=== PATIENT | male | born 1945 | race Caucasian/White ===

== ENCOUNTER 2016-11-06 18:04 | Inpatient (IN) ==
[2016-11-06] MEDS ORDERED: ASPIRIN PO STA (18:17)
--- NOTE | 2016-11-06 18:20 | EKG Report ---
Test Performed on : 11/06/2016 6:13:13 PM Test Reason : CHEST PAIN Blood Pressure : / mmHG Vent. Rate : 094 BPM Atrial Rate : 094 BPM P-R Int : 152 ms QRS Dur : 086 ms QT Int : 340 ms P-R-T Axes : 063 -10 076 degrees QTc Int : 425 ms Normal sinus rhythm. Cannot rule out Inferior infarct , age undetermined Abnormal ECG No previous ECGs available Unconfirmed Result
[2016-11-06 18:41] LABS: MANUAL DIFF NEEDED? NO
[2016-11-06 18:55] LABS: BASO% 0.3 % (0.0-0.8); EOS# 0.09 X1000 (0.0-0.7); EOS% 2.5 % (0.0-10.0); HEMATOCRIT 53.4 % (42.0-52.0); HEMOGLOBIN 17.3 g/dL (14.0-18.0); IMM GRAN# 0.01 X1000 (0.0-0.04); IMM GRAN% 0.3 % (0.0-0.5); LYMPH# 1.56 X1000 (1.2-3.4); LYMPH% 43.1 % (20.5-51.1); MCH 28.6 PG (27-31); MCHC 32.4 g/dL (33-37); MCV 88.3 FL (81-99); MONO# 0.55 X1000 (0.11-0.59); MONO% 15.2 % (1.7-9.3); MPV 9.5 FL (7.4-10.4); NEUT% 38.6 % (42.2-75.2); PLT 167 X1000 (130-400); RBC 6.05 XMIL (4.7-6.1)
[2016-11-06 19:02] LABS: INR 0.97 (0.86-1.15); PROTIME 13.2 Seconds (12.1-15.5)
[2016-11-06 19:03] LABS: PTT PL 30.6 Seconds (22.6-43.9)
[2016-11-06 19:07] LABS: ALBUMIN 4.1 g/dL (3.5-5.0); CALCIUM 9.6 mg/dL (8.8-10.2); MAGNESIUM 2.4 mg/dL (1.5-2.7); POTASSIUM 3.8 mmol/L (3.5-5.1); TOTAL BILIRUBIN 0.3 mg/dL (0.20-1.00); TOTAL PROTEIN 6.4 g/dL (6.3-8.3)
[2016-11-06 20:58] LABS: AMYLASE 58 U/L (20-200); LIPASE 21 U/L (13-60)
[2016-11-06] MEDS ORDERED: NS 1,000 ML IV ONE (21:24)
[2016-11-06] MEDS ORDERED: ZOFRAN IV PRN (21:24)
[2016-11-06] MEDS: MORPHINE IV PRN (23:49)
--- NOTE | 2016-11-07 07:32 | Diag Imaging Result Document ---
PROCEDURE NAME: CHEST-2 VIEWS - 11/06/2016 FRONTAL AND LATERAL CHEST, TWO VIEWS: COMPARISON: Compared to 08/07/2015. FINDINGS: The lungs are hyperexpanded. There is increased AP diameter to the chest. The pulmonary vessels are small. The heart is not enlarged. Density in the upper right lung has an appearance similar to that of the prior exam. No pleural effusions. IMPRESSION: 1. Emphysema. 2. Fairly stable appearing mass or scarring in the right upper lobe.
--- NOTE | 2016-11-07 07:40 | Diag Imaging Result Document ---
PROCEDURE NAME: HEAD W/O CONTRAST - 11/06/2016 CT BRAIN WITHOUT CONTRAST: COMPARISON: Compared to 03/11/2016. FINDINGS: No parenchymal hemorrhage. No epidural or subdural hematoma. No subarachnoid hemorrhage. There is atrophy with chronic microvascular ischemic changes. No sinus opacification. No air fluid levels. IMPRESSION: 1. No hemorrhage. 2. Mild atrophy with mild chronic microvascular ischemic changes. A preliminary report was given at 8:21 p.m.
[2016-11-07] MEDS ORDERED: FLOMAX PO PRN (08:23)
[2016-11-07] MEDS ORDERED: LOVENOX SUBQ SCH (08:30)
--- NOTE | 2016-11-07 09:27 | HISTORY AND PHYSICAL ---
CHIEF COMPLAINT: Syncope after mowing his yard yesterday. HISTORY OF PRESENTING ILLNESS: This is a 71-year-old male, who presented to the emergency room after he states that he was outside mowing his yard. Had some trouble with his tax record clerk, tried to fix it and he passed out. He also states that he has had been having some abdominal pain with nausea, vomiting. Workup in the ER showed a D-dimer of 1.24 and a creatinine of 1.5. His head CT showed no hemorrhage. Chest x-ray showed a fairly stable-appearing mass or scarring in the right upper lobe. A CT of the abdomen, pelvis and pulmonary arteries per ER documentation showed a right upper lobe mass 3.7 cm concerning for lung CA, severe COPD. It appears the abdomen was within normal limits. I am waiting on radiology read at this time and he was admitted for further evaluation and treatment. PAST MEDICAL HISTORY: 1. COPD. 2. BPH. 3. Hypertension. 4. Chronic pain. 5. GERD. PAST SURGICAL HISTORY: Appendectomy and a hernia repair. FAMILY HISTORY: Noncontributory. SOCIAL HISTORY: She currently lives with family. Is a half a pack a day smoker. Denies any alcohol use and uses marijuana occasionally. ALLERGIES: 1. Bacitracin. 2. Buspirone. HOME MEDICATIONS: Tamsulosin 0.4 mg p.o. p.r.n. for urinary retention. LABORATORY DATA: Showed a white blood cell count of 3.62, hemoglobin of 17.3, hematocrit 53.4, platelets 167,000. PT and INR of 13.2 and 0.97, with a D-dimer of 1.24. Sodium of 135, potassium 3.8, chloride 100, CO2 21, BUN of 19 with a creatinine of 1.5. Glucose 209. Magnesium 2.4. Creatine kinase was 62 with a troponin less than 0.010. ProBNP 35. Amylase of 58, lipase 21. CT of the head showed no hemorrhage. Mild atrophy with mild chronic microvascular ischemic changes. Chest x-ray showed emphysema and a fairly stable appearing mass or scarring in the right upper lobe. EKG shows normal sinus rhythm at [address] of the abdomen, pelvis and pulmonary arteries were ER documented. I do not have the radiology read at this time that showed a right upper mass 3.7 cm concerning for lung cancer, severe COPD and abdomen and pelvis normal. I do not have documentation at this time on whether there was no pulmonary emboli so I will look for the radiology-read report and followup. REVIEW OF SYSTEMS: He denied any fever, chills, blurred vision. He was positive for some dizziness. Denied any chest pain, coughing, shortness of breath. He is positive for some abdominal pain with nausea and vomiting that is intermittent. He denied any burning or hurting with urination. PHYSICAL EXAMINATION: On arrival, he had a temperature of 98.7 degrees, pulse 108, respirations 24, blood pressure 137/75 saturating 97% on room air. GENERAL: This is a 71-year-old male who is lying in the bed, and answers questions appropriately. HEENT: Normocephalic and atraumatic. Pupils are equal, round, reactive to light. Extraocular movements are intact. The oropharynx and nares are clear. NECK: Supple. LUNGS: Clear to auscultation bilaterally with equal lung expansion and chest wall movement. HEART: With regular rate and rhythm. No murmurs, rubs, or gallops. ABDOMEN: Soft, nontender, nondistended. Bowel sounds are present x4 quadrants. EXTREMITIES: No clubbing, cyanosis, or edema. NEUROLOGICAL: Cranial nerves 2-12 are grossly intact. ASSESSMENT: 1. Syncope. 2. Acute kidney injury. 3. Right upper lobe lung mass. 4. Hypertension. PLAN: He was admitted to the medical unit at [facility]. Placed on telemetry. Neuro checks q.4 hours for 24 hours. Placed on a regular diet. We will check an echocardiogram, a carotid ultrasound, and a bilateral lower extremity venous Doppler, do serial troponins. He is on normal saline at 80 mL an hour. Will place him on Lovenox 40 mg subcutaneous q.24 h for DVT prophylaxis until we can rule out this PE. He has morphine 2 mg IV q.2 hours p.r.n., and we will recheck a CBC and a BMP in the a.m. Patient states that he has quit smoking approximately 2 weeks ago and we will have him follow up with his primary care physician for the right upper lobe mass as an outpatient. Dictated by REECE Owens for Carl Blevins MD cc: REECE Owens, MD
[2016-11-07] MEDS: MORPHINE IV PRN ×2 (09:45→21:46)
--- NOTE | 2016-11-07 10:01 | Diag Imaging Result Document ---
PROCEDURE NAME: ABD/PELVIS/PULM ARTERIES - 11/06/2016 CT ANGIOGRAM PULMONARY ARTERIES WITH CONTRAST: Exam performed with intravenous contrast. A dose- reduction protocol was used. Axial and reformatted coronal images are obtained. COMPARISON: Images are compared with the without contrast CT thorax of 09/13/2013. FINDINGS: There are artifacts from motion which limit detail, primarily at the lower lobe pulmonary artery branches. There are no discrete pulmonary artery filling defects identified. There is severe COPD/emphysematous changes. The previously identified large right upper lobe mass has decreased a bit in size compared to previous exam. The largest single slice lobulation of the mass measures 3.6 x 2.4 cm, compared with 4.3 x 2.9 cm on the previous exam. There is scattered subcentimeter nodular densities which appear either stable or slightly decreased compared to the previous exam. There is mild right hilar and mediastinal adenopathy which appears grossly stable. IMPRESSION: 1. No evidence of pulmonary embolism. 2. Severe COPD/emphysematous changes. 3. No evidence of pneumonia. 4. Right upper lobe mass which has decreased a bit in size compared to 09/13/2013. Grossly stable mild right hilar and mediastinal adenopathy. Stable scattered subcentimeter pulmonary nodules. CT OF THE ABDOMEN AND PELVIS WITH CONTRAST: Exam performed with intravenous contrast only per request of the referring provider. A dose-reduction protocol was used. COMPARISON: Compared to 10/15/2015. FINDINGS: There is a calcification in the dome of the liver, which is stable. There are no acute abnormalities of the liver, spleen, adrenal glands, or pancreas identified. There are no calcified gallstones seen. The bilateral kidneys enhance homogeneously. There is no hydronephrosis. There are no substantially enlarged lymph nodes identified. There are atherosclerotic calcifications noted. There are a couple of small fat-containing anterior abdominal wall hernias at the upper abdomen, which are stable. There is no bowel-containing hernia seen. There is no evidence of bowel obstruction. The appendix by history is surgically absent. There is uncomplicated colonic diverticulosis. There is no free air, substantial free fluid, or abscess identified. There is prostatic enlargement similar to the previous exam IMPRESSION: 1. No bowel obstruction. Uncomplicated colonic diverticulosis. 2. Prostatic enlargement similar to prior. 3. No visible acute process. There are atherosclerotic calcifications noted. The on-call radiologist provided preliminary results at 9:02 p.m. on 11/06/2016.
[2016-11-07] MEDS: DUONEB (A & A) INH SCH ×3 (15:52→22:44)
--- NOTE | 2016-11-07 16:03 | Extremity Venous Study ---
PROCEDURE NAME: Carotid Ultrasound - 11/07/2016 CAROTID FLOW STUDY: FINDINGS: There is atherosclerotic plaquing in the right carotid bulb/proximal internal carotid artery. Maximum systolic velocity in the right internal carotid artery is 271 cm/sec and maximum diastolic velocity is 68 cm/sec, both of which are located in the proximal right internal carotid artery. The right internal to common carotid artery systolic velocity ratio of 3.54. The flow velocities and ratios suggest 80-99% stenosis in the right internal carotid artery. There is substantial soft atherosclerotic plaquing in the left common carotid artery and in the proximal left internal carotid artery. Maximum systolic velocity in the left internal carotid artery is 57 cm/sec, maximum diastolic velocity is 19 cm/sec. The left internal to common carotid systolic velocity ratio 0.54. The flow velocities and ratios suggest less than 40% stenosis in the left internal carotid artery. The bilateral vertebral arteries demonstrate antegrade flow. IMPRESSION: 1. Flow velocities and ratio which suggest 80%-99% stenosis (critical stenosis) at the proximal right internal carotid artery. 2. Substantial soft atherosclerotic plaquing in the left common carotid artery and proximal left internal carotid artery. However, the flow velocities and ratios suggest less than 40% stenosis in the left internal carotid artery. [facility]
--- NOTE | 2016-11-07 16:04 | Extremity Venous Study ---
PROCEDURE NAME: Venous U/S Bilateral Legs - 11/07/2016 BILATERAL VENOUS ULTRASOUND OF THE LOWER EXTREMITIES: FINDINGS: There is compressibility and normal color Doppler flow in the deep veins of both lower extremities. There is no evidence of superficial venous thrombosis. IMPRESSION: Normal study.
--- NOTE | 2016-11-07 22:05 | ECHO REPORT ---
ORDER DATE: 11/07/2016 MEASUREMENTS: Left ventricular end-diastolic diameter 5.4, end-systolic diameter 3.2, septal thickness 0.8, posterior wall thickness 0.8, left atrium 3.3. SUMMARY: 1. Technically difficult study due to limited acoustic window quality. 2. Aortic, mitral and tricuspid valves are without gross structural abnormality. The peak gradient across the aortic valve is less than 10 mmHg. 3. Pulmonic valve not well-demonstrated. There is trace mitral regurgitation and trace tricuspid regurgitation. Aortic root is grossly normal in size. 4. Normal left ventricular dimension suggested. Estimated left ventricle ejection fraction appears to be at least 60%. No obvious wall motion abnormality can be appreciated. Doppler suggests grade 1 left ventricular diastolic dysfunction due to impaired relaxation. Left atrium, right atrium, and right ventricle are of normal size with grossly preserved right ventricular systolic performance. 5. No pericardial effusion. 6. Inferior vena cava not well demonstrated. CONCLUSIONS: 1. Technically difficult study. 2. No significant valvular abnormality evident. 3. Estimated left ejection fraction of at least 60%. 4. Grade 1 left ventricular diastolic dysfunction. cc: MD Belén Pemberton CRNP
[2016-11-08] MEDS: DUONEB (A & A) INH SCH (03:19)
[2016-11-08 04:37] VITALS: BP 113/44
[2016-11-08] MEDS: MORPHINE IV PRN (05:50)
[2016-11-08 06:34] LABS: MANUAL DIFF NEEDED? NO
[2016-11-08 06:50] LABS: BASO% 0.3 % (0.0-0.8); EOS# 0.06 X1000 (0.0-0.7); EOS% 1.6 % (0.0-10.0); HEMATOCRIT 45.2 % (42.0-52.0); HEMOGLOBIN 14.7 g/dL (14.0-18.0); IMM GRAN# 0.01 X1000 (0.0-0.04); IMM GRAN% 0.3 % (0.0-0.5); LYMPH# 1.45 X1000 (1.2-3.4); LYMPH% 39.3 % (20.5-51.1); MCH 28.9 PG (27-31); MCHC 32.5 g/dL (33-37); MONO# 0.47 X1000 (0.11-0.59); MONO% 12.7 % (1.7-9.3); MPV 9.3 FL (7.4-10.4); NEUT% 45.8 % (42.2-75.2); PLT 151 X1000 (130-400); RBC 5.08 XMIL (4.7-6.1)
[2016-11-08 07:15] LABS: CALCIUM 8.6 mg/dL (8.8-10.2); POTASSIUM 3.6 mmol/L (3.5-5.1)
[2016-11-08] MEDS ORDERED: MORPHINE IV PRN (07:16)
--- NOTE | 2016-11-10 18:37 | PROVIDER DOCUMENTATION ---
This chart was entered by Melany Gabriel Scribe, acting as scribe for Bib Lemus DO. HPI-General Adult - General Chief Complaint: Syncope Stated Complaint: SOB Time Seen by Provider: 11/06/16 18:16 Source: patient Allergies/Adverse Reactions: Patient Allergies Allergy/AdvReac Type Severity Reaction Status Date / Time bacitracin Allergy RASH Verified 08/29/16 14:50 [From Neosporin ([id number])] bacitracin zinc * Allergy RASH Verified 08/29/16 14:50 [From Neosporin ([id number])] neomycin sulfate * Allergy RASH Verified 08/29/16 14:50 [From Neosporin ([id number])] polymyxin B Allergy RASH Verified 08/29/16 14:50 [From Neosporin ([id number])] buspirone HCl * [From BuSpar] AdvReac Mild Heartburn Verified 08/29/16 14:50 - History of Present Illness -Gen Adult Nature of Presenting Problems: PT IS A 71YOM PRESENTING TO THE ED C/O SYNCOPE. PT STATES HE WAS PUSH MOWING HIS YARD AND HAD A SYNCOPAL EPISODE. PT IS AMNESIC TO THE EVENT. PT STATES HE IS HAVING ABD PAIN WITH N/V AND EVER SINCE HE WAS SEEN HERE FOR COLITIS HE HAS HAD INTERMITTENT ABD PAIN WITH N/V/AND ABD DISTENTION, PT IS DISTENDED TODAY UPON EXAM. NO OTHER COMPLAINT NOTED AT THIS TIME Location of Pain/Injury: reports: abdomen Pain Radiation: reports: no radiation Quality of Pain: reports: aching Severity: reports: moderate Onset/Duration: reports: just prior to arrival Timing: reports: still present, intermittent Context/Activities at Onset: reports: light activity Modifying Factors: improves with: nothing Associated Symptoms: reports: fatigue, malaise, nausea, syncope, vomiting. denies: anxiety, chest pain, diaphoresis, trouble walking Similar Symptoms Previously?: No Recently seen or treated by another doctor?: No Review of Systems - Adult - REVIEW OF SYSTEMS - ADULT Constitutional: reports: no symptoms reported Eyes: reports: no symptoms reported Ears, Nose, Mouth & Throat: reports: no symptoms reported Cardiovascular: reports: see HPI, syncope. denies: chest pain, poor circulation Respiratory: reports: no symptoms reported Gastrointestinal: reports: see HPI, abdominal pain, nausea, vomiting. denies: diarrhea Genitourinary: reports: no symptoms reported Musculoskeletal: reports: no symptoms reported Integumentary: reports: no symptoms reported Neurological: reports: no symptoms reported Psychiatric: reports: no symptoms reported Endocrine: reports: no symptoms reported Hematologic/Lymphatic: reports: no symptoms reported Allergic/Immunologic: reports: no symptoms reported All Other Systems: Reviewed and Negative Past History - Adult - PAST MEDICAL HISTORY-ADULT Review of Records: reports: Old Records Reviewed, Nursing Assessment Review, Medications Reviewed, Social history reviewed & non-contributory. Major Childhood Illnesses: reports: denies history Cardiovascular: reports: HTN Respiratory: reports: COPD Gastrointestinal: reports: GERD Obstetrical/Gynecological: reports: denies history Genitourinary: reports: other (enlarged prostate) Musculoskeletal: reports: chronic pain (back and neck) Neurological: reports: denies history Endocrine/Immune: reports: denies history Other Conditions: reports: denies history - PRIOR SURGERIES/PROCEDURES Surgical/Procedure History: reports: appendectomy, hernia repair - IMMUNIZATION STATUS Childhood Immunizations: See Nurse Assessment Flu Vaccine: See Nurse Assessment - FAMILY HISTORY Family History: reviewed, not pertinent - SOCIAL HISTORY Smoking: denies, non-smoker Substance Use: marijuana Alcohol Use Frequency: every day Living Situation: family Physical Exam-General - PHYSICAL EXAM-ADULT Initial Vital Signs Reviewed: Yes - CONSTITUTIONAL General Appearance: alert, mild distress. negative: appears well, no apparent distress - EYES Eyes: PERRL/EOMI, pink conjunctivae, fundi clear, no AV nicking - HEAD, EARS, NOSE, MOUTH & THROAT HENMT: normocephalic/atraumatic, moist mucous membranes, normal ENT inspection, TMs normal, pharynx normal - NECK Neck: non-tender, full range of motion, supple, normal inspection - RESPIRATORY Respiratory: chest non-tender, lungs clear, normal breath sounds, no pleuratic chest pain, no respiratory distress, no accessory muscle use - CARDIOVASCULAR Cardiovascular: normal peripheral pulses, no edema, no gallop, no JVD, no murmur , tachycardia. negative: regular rate, rhythm - GASTROINTESTINAL (ABDOMEN) Abdominal Exam: normal bowel sounds, no organomegaly, no pulsatile mass, distended, tenderness. negative: non tender, soft - LYMPHATIC Lymphatic: no adenopathy - MUSCULOSKELETAL Back Exam: normal inspection, no CVA tenderness, no vertebral tenderness Extremity: normal range of motion, non-tender, normal gait, normal inspection, no pedal edema, no calf tenderness, normal capillary refill, pelvis stable - SKIN Integumentary: normal color, normal turgor, warm/dry - NEUROLOGIC Neurologic: glaze sprayer II-XII nml as tested, grossly normal, no motor/sensory deficits - PSYCHIATRIC Psych/Mental Status: normal mood/affect, normal thought content, normal thought process, oriented x 3 Progress - PLAN OF CARE/RESULTS Progress/Plan/Lab Results: Vital Signs - 8 hr 11/06/16 18:08 Temperature 98.7 F Pulse Rate 108 H Respiratory Rate 24 Blood Pressure 137/75 O2 Sat by Pulse Oximetry 97 Laboratory Results - last 24 hr 11/06/16 11/06/16 11/06/16 18:15 18:15 18:15 WBC RBC Hgb Hct MCV MCH MCHC RDW Std Deviation Plt Count MPV Immature Gran % (Auto) Neut % (Auto) Lymph % (Auto) [place] % (Auto) Eos % (Auto) Baso % (Auto) Immature Gran # (Auto) Neut # (Auto) Lymph # (Auto) [place] # (Auto) Eos # (Auto) Baso # (Auto) PT INR APTT (Factor Assay) D-Dimer Sodium 135 L Potassium 3.8 Chloride 100 Carbon Dioxide 21 L Anion Gap 14 BUN 19 Creatinine 1.5 H Estimated GFR/1.73 m2 46 BUN/Creatinine Ratio 13 Glucose 209 H Calculated Osmolality 278 Calcium 9.6 Magnesium 2.4 Total Bilirubin 0.30 AST 21 ALT 20 Alkaline Phosphatase 92 Creatine Kinase 62 Troponin T < 0.010 Xci-Y-Tqaqtajxgla Pept 35 Total Protein 6.4 Albumin 4.1 Globulin 2.0 Albumin/Globulin Ratio 2.0 11/06/16 11/06/16 18:15 18:15 WBC 3.62 L RBC 6.05 Hgb 17.3 Hct 53.4 H MCV 88.3 MCH 28.6 MCHC 32.4 L RDW Std Deviation 14.0 Plt Count 167 MPV 9.5 Immature Gran % (Auto) 0.3 Neut % (Auto) 38.6 L Lymph % (Auto) 43.1 [place] % (Auto) 15.2 H Eos % (Auto) 2.5 Baso % (Auto) 0.3 Immature Gran # (Auto) 0.01 Neut # (Auto) 1.40 Lymph # (Auto) 1.56 [place] # (Auto) 0.55 Eos # (Auto) 0.09 Baso # (Auto) 0.01 PT 13.2 INR 0.97 APTT (Factor Assay) 30.6 D-Dimer 1.24 H Sodium Potassium Chloride Carbon Dioxide Anion Gap BUN Creatinine Estimated GFR/1.73 m2 BUN/Creatinine Ratio Glucose Calculated Osmolality Calcium Magnesium Total Bilirubin AST ALT Alkaline Phosphatase Creatine Kinase Troponin T Ump-D-Jqfurwfkect Pept Total Protein Albumin Globulin Albumin/Globulin Ratio Orders Category Date Time Status Cardiac Monitoring DIRECTED Care 11/06/16 18:17 Active Oxygen Therapy- ED Nursing DIRECTED Care 11/06/16 18:17 Active Saline Loc NOW Care 11/06/16 18:17 Active CHEST-2 VIEWS [RAD] Stat Exams 11/06/16 18:[address] ABD/PELVIS W/ IV CONT ONLY [CT] Stat Exams 11/06/16 19:33 Ordered CTA [ANGIOGRAM/PULMONARY ARTERIES] [CT] Stat Exams 11/06/16 18:22 Ordered HEAD W/O CONTRAST [CT] Stat Exams 11/06/16 18:22 Ordered CBC WITH ELECTRONIC DIFF [HEME] Stat Lab 11/06/16 18:15 Completed CK PROFILE [SP CHEM] Stat Lab 11/06/16 18:15 Completed COMPREHENSIVE METABOLIC PANEL [CHEM] Stat Lab 11/06/16 18:[address] D-D[address]ER [address] [COAG] Stat Lab 11/06/16 18:15 Completed MAGNESIUM [CHEM] Stat Lab 11/06/16 18:15 Completed PRO B-NATRIURETIC PEPTIDE Stat Lab 11/06/16 18:15 Com[address]IME WITH INR PL [COAG] Stat Lab 11/06/16 18:[address] [COAG] Stat Lab 11/06/16 18:15 Completed TROPONIN T Stat Lab 11/06/16 18:15 Completed Aspirin Med 11/06/16 18:17 Discontinued 325 mg PO STAT STA EKG [EKG] Stat Ther 11/06/16 18:17 Draft Result Diagrams: 11/08/16 05:45 11/08/16 05:45 - CT/MRI 1 CT Study: Abdomen, Pelvis, Thorax (NO MASS, RUL MASS 3.7CM, CONCERNING FOR LUNG CA, SEVERE COPD) Departure - Departure Time of Disposition Decision: 20:00 DIAGNOSIS: Syncope Disposition: ADMITTED INPATIENT 09 Certified Medical Emergency: Emergent Condition: Stable - Critical Care Note Total Time (mins): 45 (DR LEMUS) Critical Care Statement: This patient required my direct personal management to treat or rule out processes, the absence of which, could potentiallly result in sudden, clinically significant life or limb threatening deterioration. This chart was documented by the indicated scribe, (Melany Gabriel Scribe) and accurately reflects the services I performed and decisions made by me, Bib Lemus DO, as attested by the provider's signature.
--- NOTE | 2016-11-18 20:30 | DISCHARGE SUMMARY ---
ADMISSION DATE: 11/06/2016 DISCHARGE DATE: 11/08/2016 DIAGNOSES: 1. Syncope. 2. Acute kidney injury. 3. Right upper lobe lung mass. 4. Hypertension. DIAGNOSTICS: 11/06/2016: CT of the head revealed no hemorrhage, mild atrophy with chronic microvascular ischemic changes. 11/06/2016: CT of the abdomen and pelvis revealed no bowel obstruction, uncomplicated colonic diverticulosis, prostatic enlargement similar to prior, no visible acute process. CTA pulmonary: Revealed no evidence of pulmonary embolus, severe COPD changes, no evidence of pneumonia, right upper lobe mass which is decreased a bit in size compared to 09/13/2013. 11/07/2016: Carotid Doppler study revealed flow velocity ratio that would suggest 80-99% stenosis at the proximal right internal carotid artery, flow velocities less than 40% stenosis in the left internal carotid artery. 11/07/2016: Extremity venous study of bilateral legs revealed normal study. 11/07/2016: Echocardiogram revealed no significant valvular abnormality, estimated left ejection fraction 60%, grade 1 ventricular diastolic dysfunction. HOSPITAL COURSE: Mr. Jay presented to the emergency room complaining of a syncopal episode after mowing his lawn. He had been having some abdominal pain with nausea and vomiting prior to this episode. Diagnostic studies as stated above. He received IV hydration, Lovenox subcutaneous for DVT prophylaxis, morphine as needed for pain. His troponin was negative on the morning of the . According to the chart, the patient came to the desk stating that he wanted antibiotics for his earache. When the staff informed the patient that the doctor would be rounding soon and that he could give his concerns to the doctor and ask for antibiotics, the patient stated that he was leaving. He did not wait to see the physician. Evidently he was offered AMA papers, they were explained and he refused to sign. He did allow the staff to discontinue his IV and he left the hospital against medical advice. Dictated by REECE Parada for Carl Blevins MD cc: REECE Parada MD
== END 2016-11-08 07:05 | disposition left against medical advice (07) ==
LOC: P.ED 18:04 → P.MEDSURG 21:54
PROVIDERS: ATTEND Family Medicine